=== PATIENT | female | born 1985 | race Two or more races ===

== ENCOUNTER 2020-12-02 04:57 | Emergency (ER) | payer SELFPAY ==
[~2020-12-02] VITALS: Ht 160 cm; Wt 72.7 kg
--- NOTE | 2020-12-02 05:38 | PHYS DOC ---
Adult General Chief Complaint Chief Complaint: SHORTNESS OF BREATH HPI HPI Patient is a 35 year old female who denies any significant past medical history presenting emergency department complaining of shortness of breath. Patient states that over the last 4 years she is been having intermittent episodes of shortness of breath. Patient states this occurs when she is changing of seasons which she notes mild difficulty breathing and aching in her back and her muscles. Denies any wheezing, chest pain, nausea, vomiting, dizziness or lightheadedness. Is never taken any medication for this. Denies any past medical history Review of Systems Review of Systems Constitutional: Denies fever or chills [] Eyes: Denies change in visual acuity, redness, or eye pain [] HENT: Denies nasal congestion or sore throat [] Respiratory: Denies cough or shortness of breath [] Cardiovascular: No additional information not addressed in HPI [] GI: Denies abdominal pain, nausea, vomiting, bloody stools or diarrhea [] : Denies dysuria or hematuria [] Musculoskeletal: Denies back pain or joint pain [] Integument: Denies rash or skin lesions [] Neurologic: Denies headache, focal weakness or sensory changes [] Endocrine: Denies polyuria or polydipsia [] All other systems were reviewed and found to be within normal limits, except as documented in this note. Current Medications Current Medications Current Medications Medications (Trade) Dose Ordered Sig/Mally Start Time Stop Time Status Last Admin Dose Admin Cetirizine HCl (ZyrTEC) 10 mg ONCE ONCE 12/02/20 05:45 12/02/20 05:46 DC 12/02/20 06:07 10 MG Allergies Allergies Allergies Coded Allergies Type Severity Reaction Last Updated Verified No Known Drug Allergies 12/02/20 No Physical Exam Physical Exam Constitutional: Well developed, well nourished, no acute distress, non-toxic appearance. [] HENT: Normocephalic, atraumatic, bilateral external ears normal, oropharynx moist, no oral exudates, nose normal. [] Eyes: PERRLA, EOMI, conjunctiva normal, no discharge. [] Neck: Normal range of motion, no tenderness, supple, no stridor. [] Cardiovascular:Heart rate regular rhythm, no murmur [] Lungs & Thorax: Bilateral breath sounds clear to auscultation [] Abdomen: Bowel sounds normal, soft, no tenderness, no masses, no pulsatile masses. [] Skin: Warm, dry, no erythema, no rash. [] Back: No tenderness, no CVA tenderness. [] Extremities: No tenderness, no cyanosis, no clubbing, ROM intact, no edema. [] Neurologic: Alert and oriented X 3, normal motor function, normal sensory function, no focal deficits noted. [] Psychologic: Affect normal, judgement normal, mood normal. [] Current Patient Data Vital Signs Vital Signs Date Time Temp Pulse Resp B/P (MAP) Pulse Ox O2 Delivery O2 Flow Rate FiO2 12/02/20 05:00 98.6 94 20 135/70 (91) 99 Room Air 98.6 EKG EKG [] Radiology/Procedures Radiology/Procedures [] Course & Med Decision Making Course & Med Decision Making Pertinent Labs and Imaging studies reviewed. (See chart for details) 35F presenting complaining of mild shortness of breath and discomfort most consistent with acute seasonal allergies. Will treat symptomatically, obtain a chest x-ray and EKG and reevaluate. EKG and CXR negative. PT symptoms improved. Will discharge home. Dragon Disclaimer Dragon Disclaimer This electronic medical record was generated, in whole or in part, using a voice recognition dictation system. Departure Departure Impression: Primary Impression: Seasonal allergic reaction Disposition: 01 DC HOME SELF CARE/HOMELESS Condition: GOOD Referrals: JD BEATTY MD Patient Instructions: Allergies, Generic Additional Instructions: EMERGENCY DEPARTMENT GENERAL DISCHARGE INSTRUCTIONS Thank you for coming to [facility] Emergency Department (ED) today and trusting us with you care. We trust that you had a positive experience in our Emergency Department. If you wish to speak to the department management, you may call the Director at [phone]. YOUR FOLLOW UP INSTRUCTIONS ARE FOLLOWS: 1. Do you have a private Doctor? If you do not have a private doctor, please a sk for a resource list of physicians or clinics that may be able to assist you with follow up care. 2. The Emergency Physicain has interpreted your x-rays. The X-Ray specialist will also review them. If there is a change in the findings, you will be notified in 48 hours when at all possible. 3. A lab test or culture has been done, your results will be reviewed and you will be notified if you need a change in treatment. ADDITIONAL INSTRUCTIONS AND INFORMATION: 1. Your care today has been supervised by a physician who is specially trained in emergency care. Many problems require more than one evaluation for a complete diagnosis and treatment. We recommend that you schedule your follow up appointment as recommended to ensure complete treatment of you illness or injury. If you are unable to obtain follow up care and continue to have a problem, or if your condition worsens, we recommend that you return to the ED. 2. We are not able to safely determine your condition over the phone nor are we able to give sound medical advice over the phone. For these safety reasons, if you call for medical advice we will ask you to come to the ED for further evaluation. 3. If you have any questions regarding these discharge instructions please call the ED at [phone]. SAFETY INFORMATION: In the interest of safety, wellness, and injury prevention; we encourage you to wear your sealbelt, if you smoke; quite smoking, and we encourage family to use a protective helmet for bicycling and other sporting events that present an increased risk for head injury. IF YOUR SYMPTOMS WORSEN OR NEW SYMPTOMS DEVELOP, OR YOU HAVE CONCERNS ABOUT YOUR CONDITION; OR IF YOUR CONDITION WORSENS WHILE YOU ARE WAITING FOR YOUR FOLLOW UP APPOINTMENT; EITHER CONTACT YOUR PRIMARY CARE DOCTOR, THE PHYSICIAN WHOSE NAME AND NUMBER YOU WERE GIVEN, OR RETURN TO THE ED IMMEDIATELY. Scripts Cetirizine Hcl (ZYRTEC) 10 Mg Tablet 1 TAB PO DAILY, #30 TAB 2 Refills Prov: DUY FARRELL MD 12/02/20 DUY FARRELL MD Dec 02, 2020 05:38
[2020-12-02] MEDS ORDERED: CETIRIZINE HCL 10 MG TABLET. PO ONE (05:45)
[2020-12-02 05:46] VITALS: BP 124/76
[2020-12-02] MEDS ORDERED: CETI10TA74 PO (06:11)
[2020-12-02 06:26] LABS: U PREG PATIENT NEGATIVE (NEG)
--- NOTE | 2020-12-02 06:26 | RAD ---
XR CHEST 1V INDICATION: cough . COMPARISON STUDY: None. FINDINGS: Lungs: Normal lung volume. No pulmonary mass or consolidation. The tracheobronchial tree and hilar st ructures are normal. Pleura: No pleural effusion or pneumothorax. Heart and Mediastinum: The cardiomediastinal silhouette is normal. The great vessels of the thorax ar e normal. Bones and Soft Tissues: The bones and soft tissues are within normal limits. IMPRESSION: No acute cardiopulmonary process. Electronically signed by: Nilo Dickens MD (12/02/2020 6:23 AM) [facility]
--- NOTE | 2020-12-02 06:45 | EKG ---
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
== END 2020-12-02 06:25 | disposition home or self-care (01) ==
LOC: ER 04:57
DX: T78.49XA Other allergy, initial encounter (principal); R06.02 Shortness of breath; X58.XXXA Exposure to other specified factors, initial encounter
CPT/HCPCS: 71045; 81025; 93005; 99283